=== PATIENT | female | born 1970 | race African-American/Black ===

== ENCOUNTER → 2019-09-16 | Emergency (ER) | payer MEDICAID ==
[~2019-09-16] VITALS: Ht 167.6 cm; Wt 73.0 kg
[~2019-09-16] MED LIST: IBUPROFEN 600MG TABLET PO SCH
[2019-09-16 21:28] LABS: CLARITY URINE CLOUDY (CLEAR); COLOR URINE YELLOW (YELLOW); KETONES URINE NEGATIVE (NEGATIVE); LEUKOCYTE ESTERASE URINE NEGATIVE (NEGATIVE); NITRITE URINE NEGATIVE (NEGATIVE); OCCULT BLOOD URINE NEGATIVE (NEGATIVE); PROTEIN URINE NEGATIVE (NEGATIVE); SPECIFIC GRAVITY URINE 1.025 (1.005-1.030)
[2019-09-16 21:55] VITALS: BP 120/88
== END ==
LOC: ER 18:02
DX: J20.9 Acute bronchitis, unspecified (principal); R51 Headache; R11.10 Vomiting, unspecified
CPT/HCPCS: 71045; 81003; 81025; 99284

== ENCOUNTER 2019-09-21 12:35 | Emergency (ER) | payer MEDICAID, OTHER ==
[~2019-09-21] VITALS: Ht 165.1 cm; Wt 91.0 kg
[2019-09-21 12:40] VITALS: BP 110/74
[2019-09-21 13:49] LABS: BASOPHILS % 0.5 % (0.0-2.0); EOSINOPHILS % 0.4 % (0.0-5.0); HEMOGLOBIN. 12.9 g/dL (12.0-16.0); LYMPHOCYTES % 15.5 % (20.0-50.0); MEAN CORPUSCULAR HEMOGLOBIN 30.2 pg (28.0-32.0); MEAN CORPUSCULAR VOLUME 89.2 fL (81.0-99.0); MEAN PLATELET VOLUME 7.8 fl (7.4-10.4); MONOCYTES % 11.8 % (2.0-8.0); NEUTROPHILS % 71.8 % (40.0-76.0); PLATELET 304 x1000/uL (130-400); RED BLOOD CELL COUNT 4.26 mill/uL (4.2-5.4); RED CELL DISTRIBUTION WIDTH 13.6 % (11.6-14.6)
[2019-09-21 13:56] LABS: CHLORIDE 103 mEq/L (98-107)
== END 2019-09-21 15:06 | disposition home or self-care (01) ==
LOC: ER 12:35
DX: R05 Cough (principal); R06.02 Shortness of breath; R53.1 Weakness
CPT/HCPCS: 36415; 71045; 80048; 85025; 93005; 99285